=== PATIENT | female | born 1995 | race Caucasian/White ===

== ENCOUNTER 2018-04-28 15:11 | Emergency (ER) | payer OTHER ==
[~2018-04-28] VITALS: Ht 165.1 cm; Wt 84.1 kg
[2018-04-28 15:43] VITALS: Ht 165.1 cm; Wt 84.1 kg
[2018-04-28] MEDS ORDERED: NAPROSYN500 MG PO (15:45)
[2018-04-28] MEDS ORDERED: MICROGESTIN FE1 EACH PO (15:45)
[2018-04-28] MEDS ORDERED: CYCLOBENZAPRINE10 MG PO (17:17)
[2018-04-28] MEDS ORDERED: PREDNISONE10 MG PO (17:18)
[2018-04-28] MEDS ORDERED: NAPROXEN SODIU550 M1 PO (17:19)
[2018-04-28 17:50] VITALS: BP 136/89
== END 2018-04-28 17:47 | disposition home or self-care (01) ==
LOC: D.ER 15:11
DX: S16.1XXA Strain of muscle, fascia and tendon at neck level, initial encounter (principal); X58.XXXA Exposure to other specified factors, initial encounter; Y93.9 Activity, unspecified; Y92.019 Unspecified place in single-family (private) house as the place of occurrence of the external cause; M62.838 Other muscle spasm